=== PATIENT | female | born 1990 | race Two or more races ===

== ENCOUNTER 2020-07-08 10:35 | Inpatient (IN) ==
[2020-07-08 10:48] VITALS: BMI 28.9
[2020-07-08 11:04] LABS: BILIRUBIN,URINE NEGATIVE (NEGATIVE); BLOOD/HEMOGLOBIN,URINE 4+ (NEGATIVE); GLUCOSE, URINE NEGATIVE (NEGATIVE); KETONES,URINE NEGATIVE (NEGATIVE); LEUKOCYTE ESTERASE ,URINE 2+ (NEGATIVE); NITRITES,URINE NEGATIVE (NEGATIVE); PROTEIN,URINE 1+ (NEGATIVE); UROBILINOGEN,URINE NORMAL (NORMAL)
[2020-07-08] MEDS ORDERED: PITOCIN ONE (11:05)
[2020-07-08] MEDS ORDERED: D5 1/2 NS 1000 ML 1,000 ML IV ONE (11:05)
[2020-07-08] MEDS ORDERED: D5LR 1L W PITOCIN 10 UNITS/L 10 UNITS/1,000 ML BAG IV ONE (11:06)
[2020-07-08] MEDS ORDERED: REGLAN INJ 10 MG VIAL IVP PRN (11:09)
[2020-07-08] MEDS ORDERED: PHENERGAN INJ 25 MG IM PRN ×2 (11:09→16:18)
[2020-07-08] MEDS ORDERED: D5LR 1L W PITOCIN 10 UNITS/L 10 UNITS/1,000 ML BAG IV PRN (11:09)
[2020-07-08] MEDS ORDERED: PITOCIN IVP ONE (11:09)
[2020-07-08] MEDS ORDERED: MORPHINE SULFATE INJ 2 MG INJ IVP PRN (11:09)
[2020-07-08 11:13] LABS: APPEARANCE,URINE SLIGHTLY HAZY (CLEAR); COLOR,URINE YELLOW (YELLOW)
[2020-07-08 11:14] LABS: BACTERIA,URINE TRACE /HPF (NEGATIVE); SQUAMOUS EPITHELIAL CELL,UR RARE /HPF (NEGATIVE)
[2020-07-08 11:50] LABS: BASOPHILS % (AUTO) 0.4 % (0.2-1.0); EOSINOPHILS % (AUTO) 0.2 % (0.9-2.9); HEMATOCRIT 31.4 % (36.0-47.0); HEMOGLOBIN 10.1 g/dL (12.0-16.0); LYMPHOCYTES # (AUTO) 1.4 X10^3/uL (1.3-2.9); LYMPHOCYTES % (AUTO) 12.6 % (21.0-51.0); MEAN CORPUSCULAR HGB CONC 32.2 g/dL (33.0-35.0); MEAN CORPUSCULAR VOLUME 77.9 fL (80.0-100.0); MEAN PLATELET VOLUME 8.5 fL (7.4-11.0); MONOCYTES # (AUTO) 0.7 x10^3/uL (0.3-0.8); MONOCYTES % (AUTO) 6.3 % (0.0-13.0); NEUTROPHILS # (AUTO) 9.3 x10^3/uL (2.2-4.8); NEUTROPHILS % (AUTO) 80.5 % (42.0-75.0); PLATELET COUNT 192 X10^3/uL (150.0-450.0); RED BLOOD COUNT 4.03 X10^6/uL (3.5-5.4); RED CELL DISTRIBUTION WIDTH 17.2 % (11.6-16.5); WHITE BLOOD COUNT 11.5 X10^3/uL (3.6-10.0)
[2020-07-08] MEDS ORDERED: STADOL INJ ONE (11:54)
[2020-07-08] MEDS ORDERED: D5 1/2 NS 1000 ML 1,000 ML IV SCH (12:00)
[2020-07-08 12:05] LABS: PLATELET MORPHOLOGY COMMENT NORMAL (NORMAL)
[2020-07-08 12:06] LABS: HYPOCHROMASIA SLIGHT
[2020-07-08] MEDS ORDERED: STADOL INJ IVP PRN (12:06)
[2020-07-08] MEDS: D5 1/2 NS 1L W PITOCIN 20 UNITS/L 20 UNITS/1,000 ML BAG IV ONE ×2 (12:16→16:26)
[2020-07-08 12:33] LABS: BLOOD UREA NITROGEN 9 mg/dL (7-18); CALCIUM 9.1 mg/dL (8.5-10.1); CARBON DIOXIDE 22.9 mmol/L (21-32); CHLORIDE 105 mmol/L (98-107); CREATININE 0.57 mg/dL (0.55-1.02); SODIUM 139 mmol/L (136-145); eGFR NON BLACK RACES > 60 (>60)
[2020-07-08] MEDS ORDERED: MOTRIN TAB 800 MG PO PRN (16:18)
[2020-07-08] MEDS ORDERED: DERMOPLAST PAIN RELIEF SPRAY TOP PRN (16:22)
[2020-07-08] MEDS ORDERED: MILK OF MAGNESIA PO PRN (16:22)
[2020-07-08] MEDS ORDERED: ADACEL or BOOSTRIX TDaP VACCINE IM ONE (16:22)
[2020-07-08] MEDS ORDERED: AMBIEN PO PRN (16:22)
[2020-07-08] MEDS ORDERED: D5 1/2 NS 1000 ML 1,000 ML with PITOCIN 20 UNITS IV SCH ×2 (17:00)
[2020-07-09] MEDS ORDERED: PITOCIN ONE (00:23)
[2020-07-09] MEDS ORDERED: D5 1/2 NS 1000 ML 1,000 ML IV ONE (00:23)
[2020-07-09 06:31] LABS: HEMATOCRIT 23.3 % (36.0-47.0); HEMOGLOBIN 7.5 g/dL (12.0-16.0)
[2020-07-09] MEDS: PRENATAL PLUS PO SCH (08:36)
[2020-07-09] MEDS ORDERED: NS 100 ML IV 100 ML with VENOFER 400 MG IV NR ×2 (08:40)
[2020-07-10] MEDS ORDERED: NS 100 ML IV 100 ML with VENOFER 400 MG IV NR ×2 (08:00)
[2020-07-10] MEDS: PRENATAL PLUS PO SCH (11:36)
[2020-07-10 13:42] VITALS: BP 98/56
[2020-07-10] MEDS ORDERED: ADACEL or BOOSTRIX TDaP VACCINE IM ONE (15:00)
== END 2020-07-10 15:00 | disposition home or self-care (01) | DRG 807 ==
LOC: ER 10:38 → LD 10:45 → MED/SURG 16:28
PROVIDERS: ADMIT Obstetrics & Gynecology Obstetrics; ATTEND Obstetrics & Gynecology Obstetrics
DX: Z23 Encounter for immunization; Z37.0 Single live birth; O80 Encounter for full-term uncomplicated delivery; Z20.828 Contact with and (suspected) exposure to other viral communicable diseases; Z3A.40 40 weeks gestation of pregnancy